=== PATIENT | male | born 1950 | race Caucasian/White ===

== ENCOUNTER 2023-06-09 19:51 | Observation (INO) ==
[2023-06-09] MEDS ORDERED: IOPAMIDOL 100 ML BOTTLE IV ONE (19:52)
[2023-06-09 21:23] LABS: POC Calcium, Ionized 1.2 (1.16-1.32); POC Potassium 4.7 (3.3-5.1)
[2023-06-10] MEDS: DIAZEPAM 5 MG TABLET PO ONE (02:34)
[2023-06-10] MEDS ORDERED: HYDROCORTISONE 2.5% TOPICAL PRN (09:22)
[2023-06-10] MEDS ORDERED: DEXTROSE 31 GM ORAL.SUSP PO PRN (09:31)
[2023-06-10] MEDS ORDERED: ACETAMINOPHEN 325 MG TABLET PO PRN (09:31)
[2023-06-10] MEDS ORDERED: IPRATROPIUM/ALBUTEROL 3 ML AMPUL.NEB NEB PRN (09:31)
[2023-06-10] MEDS ORDERED: ONDANSETRON 4 MG/2 ML VIAL IV PRN (09:31)
[2023-06-10] MEDS ORDERED: LACTULOSE 20 GM/30 ML ORAL.SOL PO PRN (09:31)
[2023-06-10] MEDS ORDERED: DEXTROSE 50% 50 ML VIAL IV PRN (09:31)
[2023-06-10] MEDS ORDERED: SENNOSIDES 1 TABLET PO PRN (09:31)
[2023-06-10] MEDS: morphine 4 MG/ML VIAL IV PRN (10:14)
[2023-06-10] MEDS: INSULIN LISPRO 1 UNIT/0.01 ML UNIT SQ SCH (15:17)
[2023-06-10] MEDS: 0.9 % SODIUM CHLORIDE 10 ML SYRINGE IV SCH (15:19)
[2023-06-10] MEDS: DOCUSATE SODIUM 100 MG CAPSULE PO SCH (20:29)
[2023-06-10] MEDS: PROPRANOLOL 10 MG TABLET PO SCH (20:30)
[2023-06-11 05:52] LABS: Basophils # (Auto) 0.09 K/mcL (0.00-0.30); Basophils % (Auto) 0.9 % (0.0-2.0); Eosinophils # (Auto) 0.92 K/mcL (0.00-0.70); Eosinophils % (Auto) 8.8 % (0.0-7.0); Hematocrit 38.8 % (40.1-51.0); Hemoglobin 13.5 g/dL (13.7-17.5); Lymphocytes # (Auto) 1.98 K/mcL (1.50-4.80); Mean Corpuscular HGB Conc 34.8 g/dL (31.0-36.0); Mean Platelet Volume 8.8 fL (8.8-12.5); Monocytes # (Auto) 1.18 K/mcL (0.10-0.90); Monocytes % (Auto) 11.3 % (1.0-12.0); Neutrophils % (Auto) 59.7 % (38.0-78.0); Platelet Count 241 K/mcL (140-440); RBC 4.17 M/mcL (4.63-6.08); Red Cell Distribution Width 14.1 % (11.5-14.5); WBC 10.4 K/mcL (4.5-11.0)
[2023-06-11 06:40] LABS: Estimated Average Glucose(eAG) 148 mg/dL; Hemoglobin A1C 6.8 % Hgb (4.0-6.0)
[2023-06-11 06:45] LABS: ALT/SGPT 8 U/L (<40); AST/SGOT 19 U/L (<40); Albumin 3.9 gm/dL (3.2-5.2); Albumin/Globulin Ratio 1.4 (1.0-2.3); Alkaline Phosphatase 69 U/L (39-117); Bilirubin,Total 0.3 mg/dL (0.1-1.0); Blood Urea Nitrogen 16 mg/dL (8-23); Carbon Dioxide 19 mmol/L (22-30); Chloride 101 mmol/L (96-108); Globulin 2.8 gm/dL (2.2-3.7); Glomerular Filtration Rate 73; Glucose 130 mg/dL (70-105)
[2023-06-11] MEDS: traMADol 50 MG TABLET PO PRN (06:49)
[2023-06-11 06:59] LABS: HDL Cholesterol 27 mg/dL (>40); LDL Cholesterol,Calculated 75 mg/dL (<100); Non-HDL Cholesterol 151 mg/dL (<130); Triglycerides 384 mg/dL (<150)
[2023-06-11] MEDS: ASPIRIN 81 MG TAB.CHEW CHEWED SCH (09:23)
[2023-06-11] MEDS: ATORVASTATIN 40 MG TABLET PO SCH (09:23)
[2023-06-11] MEDS: LISINOPRIL 20 MG TABLET PO SCH (09:23)
== END 2023-06-11 11:59 | disposition home or self-care (01) ==
LOC: ICU 19:51 → ED 19:51 → ICU 06-10 01:32
PROVIDERS: ADMIT Internal Medicine; ATTEND Internal Medicine